=== PATIENT | male | born 1945 ===

== ENCOUNTER 2017-01-15 15:26 | Emergency (ER) | payer BC ==
[2017-01-15] MEDS ORDERED: Dexamethasone 4 mg/ml Vial ONE (15:46)
== END 2017-01-15 15:52 | disposition home or self-care (01) ==
LOC: BURERS 15:26
DX: T65.91XA Toxic effect of unspecified substance, accidental (unintentional), initial encounter (principal); L50.9 Urticaria, unspecified; I10 Essential (primary) hypertension; K21.9 Gastro-esophageal reflux disease without esophagitis; F41.9 Anxiety disorder, unspecified; F32.9 Major depressive disorder, single episode, unspecified
CPT/HCPCS: 99282; J1100